=== PATIENT | male | born 1965 | race Caucasian/White ===

== ENCOUNTER 2019-06-16 17:09 | Emergency (ER) | payer OTHER ==
[~2019-06-16] VITALS: Ht 177.8 cm; Wt 97.7 kg
[2019-06-16 17:41] LABS: HEMATOCRIT 43 % (40-54); HEMOGLOBIN 15.1 G/DL (13.3-17.7); MEAN CORPUSCULAR HEMOGLOBIN 32 PG (25-34); MEAN CORPUSCULAR HGB CONC 35 G/DL (32-36); MEAN CORPUSCULAR VOLUME 91 FL (80-99); MEAN PLATELET VOLUME 8.8 FL (7.4-10.4); PLATELET COUNT 229 10^3/uL (130-400); RED CELL DISTRIBUTION WIDTH 12.1 % (10.0-14.5); WHITE BLOOD COUNT 8.5 10^3/uL (4.3-11.0)
[2019-06-16 17:42] LABS: BASOPHILS % (AUTO) 0 % (0-10); EOSINOPHILS # (AUTO) 0.1 10^3/uL (0.0-0.3); EOSINOPHILS % (AUTO) 1 % (0-10); LYMPHOCYTES # (AUTO) 3.5 X 10^3 (1.0-4.0); LYMPHOCYTES % (AUTO) 42 % (12-44); MONOCYTES # (AUTO) 0.6 X 10^3 (0.0-1.0); MONOCYTES % (AUTO) 7 % (0-12); NEUTROPHILS # (AUTO) 4.2 X 10^3 (1.8-7.8); NEUTROPHILS % (AUTO) 50 % (42-75)
--- NOTE | 2019-06-16 17:44 | Diagnostic Imaging Report ---
PROCEDURE: CT head wo r/o stroke. TECHNIQUE: Multiple contiguous axial images were obtained through the brain without the use of intravenous contrast. Auto Exposure Controls were utilized during the CT exam to meet ALARA standards for radiation dose reduction. INDICATION: Indication: Sudden onset of posterior head pain and neck pain left hand numbness dizziness and blurry vision. FINDINGS: Noncontrast CT scan of the head demonstrates no mass effect or midline shift hemorrhage or extra-axial fluid collections. Leyva-white matter dictation is normal. No atrophic or ischemic changes are present. There is no insular ribbon sign or hyperdense MCA sign. The osseous structures are normal. IMPRESSION: Normal CT scan of the head. Dictated by: Dictated on workstation # [id number]
--- NOTE | 2019-06-16 17:51 | Diagnostic Imaging Report ---
INDICATION: Sudden onset of posterior pain in the head and neck, left hand numbness, dizziness and blurred vision. FINDINGS: Frontal view of the chest demonstrates the lungs to be clear. Heart size and vascularity are normal. There are no pleural effusions. IMPRESSION: Negative chest. Dictated by: Dictated on workstation # [id number]
[2019-06-16] MEDS ORDERED: IOHEXOL 350 MG/ML 100 ML (OMNIPAQUE 350) VIAL IV ONE (18:00)
[2019-06-16] MEDS ORDERED: NS 100 ML (IVPB) BAG IV ONE (18:00)
[2019-06-16] MEDS ORDERED: CATHETER FLUSH 10 ML SYR IV PRN (18:00)
[2019-06-16] MEDS ORDERED: HOLD METFORMIN - RECEIVED CONTRAST 20 ML VIAL IV SCH (18:00)
[2019-06-16 18:04] LABS: FIBRIN DEGRADATION PRODUCTS 0.39 UG/ML (0.00-0.49); PROTHROMBIN TIME PATIENT 13.6 SEC (12.2-14.7)
[2019-06-16 18:05] LABS: ALANINE AMINOTRANSFERASE 46 U/L (0-55); ALBUMIN 4.6 GM/DL (3.2-4.5); ALKALINE PHOSPHATASE 54 U/L (40-136); BILIRUBIN,TOTAL 0.4 MG/DL (0.1-1.0); BUN/CREATININE RATIO 10; CALCIUM 9.6 MG/DL (8.5-10.1); CARBON DIOXIDE 31 MMOL/L (21-32); CHLORIDE 98 MMOL/L (98-107); GFR ESTIMATED > 60; GLUCOSE 150 MG/DL (70-105); POTASSIUM 3.9 MMOL/L (3.6-5.0); SODIUM 140 MMOL/L (135-145); TOTAL PROTEIN 7.5 GM/DL (6.4-8.2)
--- NOTE | 2019-06-16 18:23 | ED Neurological Problem ---
General Chief Complaint: Neuro-Stroke Like Symptoms Stated Complaint: VISION DISTURBANCE/HEADACHE Nursing Triage Note: Patient c/o dull headache, visual disturbances, and memory impairment. States he woke up with a dull ache in the back of his head/neck and was felt like his vision was distored more on the right then left. Reports that he also couldn't think of the work bulletin. Upon arrival to ED all of his symptoms have resovled except for the dull headache. 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 This was mild and did not disturb him much. He was able to execute his duties during mass earlier in the day without any difficulty. He took a nap and woke with additional symptoms including throbbing occipital pain and pain at the base of his neck, slight numbness in the left hand, and a subtle deficit in his vision disrupting the picture on the television and the reading of his evening prayers. Symptoms have resolved except for the headache. NIH stroke score is zero. He has no history of migraine headaches and has never had an episode like this in the past. (JOSÉ MIGUEL YANCEY MD) Allergies and Home Medications Allergies Coded Allergies: No Allergy Information Available (Unverified , 06/16/19) Patient Home Medication List Home Medication List Reviewed: Yes (JOSÉ MIGUEL YANCEY MD) Review of Systems Review of Systems Constitutional: no symptoms reported Eyes: See HPI Ears, Nose, Mouth, Throat: no symptoms reported Respiratory: no symptoms reported Cardiovascular: no symptoms reported Gastrointestinal: no symptoms reported Genitourinary: no symptoms reported, discharge Musculoskeletal: no symptoms reported Skin: no symptoms reported Psychiatric/Neurological: See HPI Endocrine: No Symptoms Reported (JOSÉ MIGUEL YANCEY MD) Past Lsaaygo-Meevpo-Izcnzm Hx Patient Social History Alcohol Use: Occasionally Uses Recreational Drug Use: No Smoking Status: Former Smoker Type Used: Cigarettes Former Smoker, Quit: Aug 10, 1996 2nd Hand Smoke Exposure: No Recent Foreign Travel: No Contact w/Someone Who Travel: No Recent Infectious Disease Expo: No Recent Hopitalizations: No Physical Abuse: No Sexual Abuse: No Mistreated: No Fear: No (JOSÉ MIGUEL YANCEY MD) Seasonal Allergies Seasonal Allergies: Yes (JOSÉ MIGUEL YANCEY MD) Past Medical History Surgeries: No Respiratory: No Cardiac: Yes Hypertension Neurological: No Genitourinary: No Gastrointestinal: No Musculoskeletal: No Endocrine: No HEENT: No Cancer: No Psychosocial: No Integumentary: No Blood Disorders: No (JOSÉ MIGUEL YANCEY MD) Physical Exam Vital Signs Vital Signs - First Documented 06/16/19 17:25 Temp 36.7 Pulse 96 Resp 12 B/P (MAP) 154/76 (102) Pulse Ox 98 O2 Delivery Room Air (MÓNICA OCONNOR DO) Vital Signs Capillary Refill : Less Than 3 Seconds (JOSÉ MIGUEL YANCEY MD) Height, Weight, BMI Height: '" Weight: lbs. oz. 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, no motor/sensory deficits, alert, normal mood/affect, oriented x 3 Crainal Nerves: normal hearing, normal speech Coordination/Gait: normal finger to nose (normal heel to winn), normal gait Motor/Sensory: no motor deficit, no sensory deficit Skin: normal color, warm/dry (JOSÉ MIGUEL YANCEY MD) Stroke NIH Stroke Scale Assessment Level of Consciousness: 0=Alert (0), Level of Consciousness-Questions: 0=Answers both month/age (0), LOC Commands: 0=Performs both tasks (0), Visual Jimenez: 0=No visual loss (0), Facial Movement (Facial Paresis): 0=Normal symmetrical mnt (0), Motor Function-Arms Right: 0=No drift (0), Motor Function-Arms Left: 0=No drift (0), Motor Function-Legs Right: 0=No drift (0), Motor Function-Legs Left: 0=No drift (0), Limb Ataxia: 0=Absent (0), Sensory: 0=Normal:no loss (0), Best Language: 0=No aphasia (0), Dysarthria: 0=Normal (0), Total: 0 Progress/Results/Core Measures Results/Orders Lab Results Laboratory Tests Test 06/16/19 17:30 06/16/19 17:53 Range/Units White Blood Count 8.5 4.3-11.0 10^3/uL Red Blood Count 4.69 4.35-5.85 10^6/uL Hemoglobin 15.1 13.3-17.7 G/DL Hematocrit 43 40-54 % Mean Corpuscular Volume 91 80-99 FL Mean Corpuscular Hemoglobin 32 25-34 PG Mean Corpuscular Hemoglobin Concent 35 32-36 G/DL Red Cell Distribution Width 12.1 10.0-14.5 % Platelet Count 229 130-400 10^3/uL Mean Platelet Volume 8.8 7.4-10.4 FL Neutrophils (%) (Auto) 50 42-75 % Lymphocytes (%) (Auto) 42 12-44 % Monocytes (%) (Auto) 7 0-12 % Eosinophils (%) (Auto) 1 0-10 % Basophils (%) (Auto) 0 0-10 % Neutrophils # (Auto) 4.2 1.8-7.8 X 10^3 Lymphocytes # (Auto) 3.5 1.0-4.0 X 10^3 Monocytes # (Auto) 0.6 0.0-1.0 X 10^3 Eosinophils # (Auto) 0.1 0.0-0.3 10^3/uL Basophils # (Auto) 0.0 0.0-0.1 10^3/uL Prothrombin Time 13.6 12.2-14.7 SEC INR Comment 1.0 0.8-1.4 Activated Partial Thromboplast Time 29 24-35 SEC D-Dimer 0.39 0.00-0.49 UG/ML Sodium Level 140 135-145 MMOL/L Potassium Level 3.9 3.6-5.0 MMOL/L Chloride Level 98 98-107 MMOL/L Carbon Dioxide Level 31 21-32 MMOL/L Anion Gap 11 5-14 MMOL/L Blood Urea Nitrogen 10 7-18 MG/DL Creatinine 1.00 0.60-1.30 MG/DL Estimat Glomerular Filtration Rate > 60 BUN/Creatinine Ratio 10 Glucose Level 150 H 70-105 MG/DL Calcium Level 9.6 8.5-10.1 MG/DL Corrected Calcium 8.5-10.1 MG/DL Total Bilirubin 0.4 0.1-1.0 MG/DL Aspartate Amino Transf (AST/SGOT) 32 5-34 U/L Alanine Aminotransferase (ALT/SGPT) 46 0-55 U/L Alkaline Phosphatase 54 40-136 U/L Troponin I < 0.30 <0.30 NG/ML Total Protein 7.5 6.4-8.2 GM/DL Albumin 4.6 H 3.2-4.5 GM/DL Glucometer 126 H 70-110 MG/DL (MÓNICA OCONNOR DO) Medications Given in ED Current Medications Medications Dose Ordered Sig/Donnie Route Start Time Stop Time Status Last Admin Dose Admin Iohexol 85 ml ONCE ONCE IV 06/16/19 18:00 06/16/19 18:01 DC 06/16/19 18:30 75 ML Sodium Chloride 10 ml NEEDED PRN IV 06/16/19 18:00 06/16/19 18:30 10 ML Sodium Chloride 100 ml ONCE ONCE IV 06/16/19 18:00 06/16/19 18:01 DC 06/16/19 18:30 100 ML (MÓNICA OCONNOR DO) Vital Signs/I&O 06/16/19 17:25 Temp 36.7 Pulse 96 Resp 12 B/P (MAP) 154/76 (102) Pulse Ox 98 O2 Delivery Room Air (MÓNICA OCONNOR DO) Blood Pressure Mean: 102 POS FSBG Bedside Testing Finger Stick Blood Glucose: 126 (JOSÉ MIGUEL YANCEY MD) Progress Progress Note : Time: 18:[address] was unremarkable. Labs as reviewed this far are unremarkable. CT angiogram is pending. Care of this patient is being transitioned to Dr. Oconnor at this time. (JOSÉ MIGUEL YANCEY MD) Progress Note : Progress Note @1920 - patient updated on lab and imaging results. He states that his symptoms have completely resolved. He has no complaints at this time. I explained to the patient that he certainly could have had a complex migraine or could have had a TIA which has completely resolved. I recommended to the patient that he take a baby aspirin daily. I am going to discuss the case with neurology prior to discharge. @2009 - While awaiting callback the patient states that he cannot wait any longer and wants to go home. He has no complaints. Workup today fails to reveal any emergent pathology. Advised the patient to follow up with his PCP in the next 1-2 days and to return to the emergency Department immediately for new or worsening symptoms. Again advised 81 mg aspirin daily. The patient expresses verbal understanding and agreement with the plan and is stable for discharge at this time. (MÓNICA OCONNOR DO) Initial ECG Impression Date: Jun 16, 2019 Initial ECG Impression Time: 17:49 Initial ECG Rate: 96 Initial ECG Rhythm: Normal Sinus Initial ECG Intervals: Normal Initial ECG Impression: Normal Comment NSR with no ST elevation or depression. No abnormal rhythms or axis deviation. (JOSÉ MIGUEL YANCEY MD) Diagnostic Imaging Diagonstic Imaging: CT Plain Films/CT/US/NM/MRI: head Comments CT head viewed by me and report reviewed. See report below: NAME: ARABELLA [facility]LEY [facility] REC#: [id number] PT STATUS: REG ER : 1965 PHYSICIAN: JOSÉ MIGUEL YANCEY MD ADMIT DATE: 06/16/19/ER FS Signed Date of Exam: 06/16/19 CT HEAD WO-R/O STROKE PROCEDURE: CT head wo r/o stroke. TECHNIQUE: Multiple contiguous axial images were obtained through the brain without the use of intravenous contrast. Auto Exposure Controls were utilized during the CT exam to meet ALARA standards for radiation dose reduction. INDICATION: Indication: Sudden onset of posterior head pain and neck pain left hand numbness dizziness and blurry vision. FINDINGS: Noncontrast CT scan of the head demonstrates no mass effect or midline shift hemorrhage or extra-axial fluid collections. Leyva-white matter dictation is normal. No atrophic or ischemic changes are present. There is no insular ribbon sign or hyperdense MCA sign. The osseous structures are normal. IMPRESSION: Normal CT scan of the head. Dictated by: Dictated on workstation # [id number] Dict: 06/16/191740 Trans: 06/16/191741 Interpreted by: YVONNE DUARTE MD Electronically signed by: YVONNE DUARTE MD 06/16/191741 Diagonstic Imaging: Xray Plain Films/CT/US/NM/MRI: chest Comments Chest x-ray report reviewed. See report below: NAME: ARABELLA [facility] REC#: [id number] PT STATUS: REG ER : 1965 PHYSICIAN: JOSÉ MIGUEL YANCEY MD ADMIT DATE: 06/16/19/ER FS Signed Date of Exam: 06/16/19 CHEST 1 VIEW AP/PA ONLY INDICATION: Sudden onset of posterior pain in the head and neck, left hand numbness, dizziness and blurred vision. FINDINGS: Frontal view of the chest demonstrates the lungs to be clear. Heart size and vascularity are normal. There are no pleural effusions. IMPRESSION: Negative chest. Dictated by: Dictated on workstation # [id number] Dict: 06/16/191746 Trans: 06/16/191804 Interpreted by: YVONNE DUARTE MD Electronically signed by: YVONNE DUARTE MD 06/16/191804 (JOSÉ MIGUEL YANCEY MD) Comments [facility] [place] POS NAME: ARABELLA HENSLEY [facility] REC#: [id number] PT STATUS: REG ER : 1965 PHYSICIAN: JOSÉ MIGUEL YANCEY MD ADMIT DATE: 06/16/19/ER FS Draft POSDate of Exam:06/16/19 CT ANGIO HEAD/NECK PROCEDURE: CT angiography of the head and CT angiography of the neck with and without contrast. TECHNIQUE: Contiguous noncontrast images were obtained from the skull base through the vertex. After intravenous contrast administration, helical CT angiography of the neck was performed. Source data was reformatted into 3D MIP projections. Delayed post contrast acquisition was also obtained. Auto Exposure Controls were utilized during the CT exam to meet ALARA standards for radiation dose reduction. INDICATION: Posterior head and neck pain with visual disturbance and memory impairment. Patient is having numbness in left hand and dizziness. COMPARISON STUDY: Noncontrast CT scan of the head from earlier today. FINDINGS: The CTA of the neck demonstrates the lung apices to be clear. Soft tissues of the neck appear normal. The airway is clear. Some degenerative changes are present within the spine. There is no fracture or subluxation. There is normal takeoff of the great vessels from the arch. The left vertebral artery is dominant. No stenosis or dissection of the vertebral arteries is identified. Mild plaque is seen at the right carotid bifurcation. Left carotid bifurcation appears normal. The intracranial circulation demonstrates no aneurysm or arteriovenous malformation. The posterior cerebral arteries, superior cerebellar arteries, AICAs and PICAs appear grossly normal. The right middle cerebral artery is normal. The left middle cerebral artery appears normal. Both anterior cerebral arteries are normal. IMPRESSION: 1. Normal vascular structures are seen in the head and neck. 2. Degenerative change is present in the cervical spine. Dictated on workstation # [id number] Dict: 06/16/19 1849 Trans: 06/16/19 1905 [facility] [id number] Interpreted by: YVONNE DUARTE MD Electronically signed by: (MÓNICA OCONNOR DO) Departure Impression Primary Impression: Stroke-like symptoms Disposition: 01 HOME, SELF-CARE Condition: Stable Departure-Patient Inst. Referrals: NO,LOCAL PHYSICIAN (PCP/Family) Primary Care Physician Patient Instructions: Transient Ischemic Attack (DC), Migraine Headache (DC), Paresthesias (DC) Add. Discharge Instructions: Follow-up with your doctor in the next 1-2 days. As discussed take an 81 mg aspirin daily. Return to the emergency Department immediately for new or worsening symptoms. JOSÉ MIGUEL YANCEY MD Jun 16, 2019 18:23 MÓNICA BANEGAS DO Jun 16, 2019 19:20 POS
--- NOTE | 2019-06-16 19:05 | Diagnostic Imaging Report ---
PROCEDURE: CT angiography of the head and CT angiography of the neck with and without contrast. TECHNIQUE: Contiguous noncontrast images were obtained from the skull base through the vertex. After intravenous contrast administration, helical CT angiography of the neck was performed. Source data was reformatted into 3D MIP projections. Delayed post contrast acquisition was also obtained. Auto Exposure Controls were utilized during the CT exam to meet ALARA standards for radiation dose reduction. INDICATION: Posterior head and neck pain with visual disturbance and memory impairment. Patient is having numbness in left hand and dizziness. COMPARISON STUDY: Noncontrast CT scan of the head from earlier today. FINDINGS: The CTA of the neck demonstrates the lung apices to be clear. Soft tissues of the neck appear normal. The airway is clear. Some degenerative changes are present within the spine. There is no fracture or subluxation. There is normal takeoff of the great vessels from the arch. The left vertebral artery is dominant. No stenosis or dissection of the vertebral arteries is identified. Mild plaque is seen at the right carotid bifurcation. Left carotid bifurcation appears normal. The intracranial circulation demonstrates no aneurysm or arteriovenous malformation. The posterior cerebral arteries, superior cerebellar arteries, AICAs and PICAs appear grossly normal. The right middle cerebral artery is normal. The left middle cerebral artery appears normal. Both anterior cerebral arteries are normal. IMPRESSION: 1. Normal vascular structures are seen in the head and neck. 2. Degenerative change is present in the cervical spine. Dictated by: Dictated on workstation # [id number]
[2019-06-16 20:18] VITALS: BP 141/84
== END 2019-06-16 20:18 | disposition home or self-care (01) ==
LOC: ER FS 17:13
DX: H53.9 Unspecified visual disturbance (principal); R51 Headache; I10 Essential (primary) hypertension; Z87.891 Personal history of nicotine dependence
CPT/HCPCS: 36415; 70450; 70496; 70498; 71045; 80053; 82962; 84484; 85025; 85379; 85610; 85730; 93005; 93041